=== PATIENT | male | born 1945 | race Hispanic/Latino ===

== ENCOUNTER 2019-01-01 20:02 | Inpatient (IN) | payer OTHER ==
[~2019-01-01] VITALS: Ht 175.3 cm; Wt 95.2 kg
[2019-01-01 20:31] LABS: BASOPHILS % (AUTO) 0.8 % (0.0-5.0); EOSINOPHILS % (AUTO) 0.4 % (0.0-8.0); HEMATOCRIT 42.6 % (42-54); LYMPHOCYTES % (AUTO) 10.2 % (21.0-51.0); MEAN CORPUSCULAR HGB CONC 34.7 g/dL (32.0-36.0); MEAN CORPUSCULAR VOLUME 92.4 fL (79-99); MONOCYTES % (AUTO) 7.9 % (3.0-13.0); NEUTROPHILS % (AUTO) 80.7 % (40.0-77.0); PLATELET COUNT (AUTO) 146 K/uL (130-400); RED BLOOD CELL COUNT(AUTO) 4.61 MIL/uL (4.50-6.20); RED CELL DISTRIBUTION WIDTH 13.9 % (11.0-15.5); WHITE BLOOD COUNT (AUTO) 10.8 K/uL (4.8-10.8)
[2019-01-01 20:44] LABS: CREATININE 4.1 mg/dL (0.5-1.5)
[2019-01-01 20:50] LABS: ALBUMIN 4.1 g/dL (3.5-5.0); BILIRUBIN,TOTAL 1.3 mg/dL (0.2-1.0); TOTAL PROTEIN, SERUM 7.1 g/dL (6.0-8.3)
[2019-01-01 21:14] LABS: APPEARANCE,URINE Clear (CLEAR); BILIRUBIN,URINE Negative (NEGATIVE); COLOR,URINE Yellow (YELLOW); GLUCOSE, URINE (UA) Negative (NEGATIVE); KETONES,URINE Negative (NEGATIVE); LEUKOCYTE ESTERASE ,URINE Trace (NEGATIVE); NITRATE,URINE Negative (NEGATIVE); OCCULT BLOOD,URINE Small (NEGATIVE); PROTEIN,URINE POS 2+ mg/dL (NEGATIVE)
[2019-01-01] MEDS ORDERED: MORPHINE SULFATE 4 MG/1ML SYG ONE (21:16)
[2019-01-01] MEDS ORDERED: ONDANSETRON HCL 4 MG/2 ML VIAL ONE (21:18)
[2019-01-01 21:24] LABS: BACTERIA,URINE Few /HPF (None Seen); SQUAMOUS EPITHELIAL CELL,UR Few /HPF (0-2); TRANSITIONAL EPI CELLS,URINE Few /HPF (None Seen)
[2019-01-01 21:25] LABS: MUCUS,URINE Rare LPF (None Seen)
[2019-01-02 01:15] VITALS: BP 157/88
[2019-01-02] MEDS ORDERED: AMLO5TAB9 PO (02:10)
[2019-01-02] MEDS ORDERED: LOSA100T58 PO (02:10)
[2019-01-02] MEDS ORDERED: METO100T14 PO (02:10)
[2019-01-02 03:07] LABS: CREATINE KINASE, TOTAL 57 U/L (21-232); MYOGLOBIN 198 ng/mL (10-92); TROPONIN I < 0.04 ng/mL (0.00-0.06)
[2019-01-02 03:28] VITALS: BP 151/75
[2019-01-02] MEDS: SODIUM CHLORIDE 0.9% 1000ML 1,000 ML IV SCH ×3 (05:42→22:32)
[2019-01-02 08:00] VITALS: BP 133/67
[2019-01-02 08:40] LABS: CREATINE KINASE, TOTAL 45 U/L (21-232); MYOGLOBIN 213 ng/mL (10-92); TROPONIN I < 0.04 ng/mL (0.00-0.06)
[2019-01-02] MEDS ORDERED: LOSARTAN 100 MG TABLET PO SCH (09:00)
[2019-01-02] MEDS: AMLODIPINE BESYLATE 5 MG TAB PO SCH (09:58)
[2019-01-02] MEDS: METOPROLOL TARTRATE 50 MG TAB PO SCH ×2 (09:58→21:01)
--- NOTE | 2019-01-02 10:30 | NUR ---
ROUND DR. MIKAYLA FERRARI VISITED WITH PATIENT. POC DISCUSSED. NEW ORDERS RECEIVED AND CARRIED OUT.
[2019-01-02 11:12] LABS: CREATININE,URINE RANDOM 129 mg/dL (30-135); SODIUM,URINE RANDOM 98 mmol/l (40-220)
[2019-01-02 12:00] VITALS: BP 146/73
[2019-01-02] MEDS: HYDROCODONE/ACETAMINOPHEN 5/325 MG TAB PO PRN (12:04)
[2019-01-02 13:05] LABS: ALBUMIN 3.2 g/dL (3.5-5.0); BILIRUBIN,TOTAL 1.2 mg/dL (0.2-1.0); CREATININE 5.7 mg/dL (0.5-1.5); POTASSIUM 5.6 mmol/L (3.5-5.1); TOTAL PROTEIN, SERUM 6.5 g/dL (6.0-8.3)
[2019-01-02 15:03] LABS: CREATINE KINASE, TOTAL 38 U/L (21-232); MYOGLOBIN 184 ng/mL (10-92); TROPONIN I < 0.04 ng/mL (0.00-0.06)
[2019-01-02 16:00] VITALS: BP 113/58
[2019-01-02 19:49] VITALS: BP 122/61
[2019-01-03] VITALS (7 sets, daily range): BP systolic 125–152; BP diastolic 60–78
[2019-01-03 05:33] LABS: HEMATOCRIT 35.5 % (42-54); MEAN CORPUSCULAR HEMOGLOBIN 32.9 pg (27.0-33.0); MEAN CORPUSCULAR HGB CONC 34.9 g/dL (32.0-36.0); MEAN CORPUSCULAR VOLUME 94.1 fL (79-99); PLATELET COUNT (AUTO) 108 K/uL (130-400); RED BLOOD CELL COUNT(AUTO) 3.77 MIL/uL (4.50-6.20); RED CELL DISTRIBUTION WIDTH 14.4 % (11.0-15.5); WHITE BLOOD COUNT (AUTO) 12.9 K/uL (4.8-10.8)
[2019-01-03 05:41] LABS: BAND NEUTROPHILS % (MANUAL) 4 % (0-2); LYMPHOCYTES % (MANUAL) 15 % (22-44); MONOCYTES % (MANUAL) 6 % (2-9); SEGMENTED NEUTROPHILS % 75 % (40-70)
[2019-01-03 05:42] LABS: MAN.DIFF COMMENT-IMPRESSION MANUAL DIFFERENTIAL; PLATELET MORPHOLOGY COMMENT SLIGHTLY DECREASED
[2019-01-03 05:52] LABS: ALBUMIN 2.6 g/dL (3.5-5.0); POTASSIUM 5.6 mmol/L (3.5-5.1); TOTAL PROTEIN, SERUM 6.1 g/dL (6.0-8.3)
[2019-01-03] MEDS: SODIUM CHLORIDE 0.9% 1000ML 1,000 ML IV SCH ×3 (05:53→22:33)
[2019-01-03] MEDS: AMLODIPINE BESYLATE 5 MG TAB PO SCH (08:23)
[2019-01-03] MEDS: METOPROLOL TARTRATE 50 MG TAB PO SCH ×2 (08:23→22:07)
[2019-01-03] MEDS: SODIUM POLYSTYRENE SULFONATE 15 GM/60 ML ML PO SCH ×2 (12:30→22:08)
--- NOTE | 2019-01-03 17:10 | NUR ---
DC Plan Discussed dcp with patient and at bedside. Independently performs ADLs with cane/walker. Denies HH or provider services. States has a walker and cane. Denies falls. States feels safe returning home upon discharge. DCP to home w/ . CD Addendum: 01/03/19 at 1711 by ANA LILIA WARD CM Amended: Links added.
[2019-01-03 17:50] LABS: PROTEIN,URINE RANDOM 321.3 mg/dL (0-11.9)
[2019-01-04 04:00] VITALS: BP 153/77
[2019-01-04] MEDS: HYDROCODONE/ACETAMINOPHEN 5/325 MG TAB PO PRN ×2 (04:18→04:22)
[2019-01-04] MEDS: SODIUM CHLORIDE 0.9% 1000ML 1,000 ML IV SCH (05:24)
[2019-01-04 05:57] LABS: ALBUMIN 2.6 g/dL (3.5-5.0); BILIRUBIN,TOTAL 1.3 mg/dL (0.2-1.0); POTASSIUM 4.4 mmol/L (3.5-5.1); TOTAL PROTEIN, SERUM 6.1 g/dL (6.0-8.3)
[2019-01-04 06:04] LABS: CREATININE 8.1 mg/dL (0.5-1.5)
[2019-01-04 07:30] VITALS: BP 145/65
[2019-01-04] MEDS: AMLODIPINE BESYLATE 5 MG TAB PO SCH (08:46)
[2019-01-04] MEDS: METOPROLOL TARTRATE 50 MG TAB PO SCH ×2 (08:46→21:55)
[2019-01-04] MEDS: SODIUM POLYSTYRENE SULFONATE 15 GM/60 ML ML PO SCH ×3 (09:00→21:00)
[2019-01-04 11:00] VITALS: BP 164/75
[2019-01-04] MEDS ORDERED: FUROSEMIDE 10 MG/ML 4ML VIAL IV SCH (12:15)
[2019-01-04] MEDS ORDERED: LACTULOSE 20 GM/30 ML UDCUP PO PRN (12:15)
[2019-01-04] MEDS ORDERED: FUROSEMIDE 10 MG/ML 2ML VIAL IV SCH (12:15)
[2019-01-04] MEDS: IPRATROPIUM/ALBUTEROL SULFATE 3 ML SOLUTION IH SCH ×3 (12:43→23:15)
--- NOTE | 2019-01-04 12:51 | NUR ---
1 TO 2 WEEK Addendum: 01/04/19 at 1252 by JAROD LIU RT Amended: Links added.
[2019-01-04 15:30] VITALS: BP 157/73
[2019-01-04] MEDS: ACETYLCYSTEINE 10% 100MG/ML 4ML VIAL IH SCH ×2 (18:25→23:15)
[2019-01-04 20:01] VITALS: BP 156/85
[2019-01-04] MEDS: GUAIFENESIN-DM 200/20 MG 10 ML PO PRN (21:57)
[2019-01-05] VITALS (11 sets, daily range): BP systolic 142–175; BP diastolic 58–86
[2019-01-05] MEDS ORDERED: FUROSEMIDE 10 MG/ML 2ML VIAL IV SCH (01:15)
[2019-01-05 05:25] LABS: HEMATOCRIT 34.1 % (42-54); MEAN CORPUSCULAR HEMOGLOBIN 32.4 pg (27.0-33.0); MEAN CORPUSCULAR HGB CONC 34.7 g/dL (32.0-36.0); MEAN CORPUSCULAR VOLUME 93.3 fL (79-99); PLATELET COUNT (AUTO) 135 K/uL (130-400); RED BLOOD CELL COUNT(AUTO) 3.65 MIL/uL (4.50-6.20); RED CELL DISTRIBUTION WIDTH 14.3 % (11.0-15.5); WHITE BLOOD COUNT (AUTO) 10.5 K/uL (4.8-10.8)
[2019-01-05 05:31] LABS: INR 1.12 (0.85-1.15); PARTIAL THROMBOPLASTIN TIME 37.3 SEC (26.3-35.5); PROTHROMBIN TIME 11.7 SEC (9.6-11.6)
[2019-01-05 05:34] LABS: PHOSPHORUS 7.3 mg/dL (2.5-4.9)
[2019-01-05 05:43] LABS: CREATININE 9.2 mg/dL (0.5-1.5)
[2019-01-05 06:20] LABS: BAND NEUTROPHILS % (MANUAL) 13 % (0-2); LYMPHOCYTES % (MANUAL) 8 % (22-44); MAN.DIFF COMMENT-IMPRESSION MANUAL DIFFERENTIAL; MONOCYTES % (MANUAL) 6 % (2-9); PLATELET MORPHOLOGY COMMENT ADEQUATE; REACTIVE LYMPHOCYTES 1 % (0-0); SEGMENTED NEUTROPHILS % 72 % (40-70)
[2019-01-05] MEDS: IPRATROPIUM/ALBUTEROL SULFATE 3 ML SOLUTION IH SCH ×4 (06:34→23:30)
[2019-01-05] MEDS: ACETYLCYSTEINE 10% 100MG/ML 4ML VIAL IH SCH ×4 (06:34→23:29)
[2019-01-05] MEDS: SODIUM POLYSTYRENE SULFONATE 15 GM/60 ML ML PO SCH ×3 (09:00→22:29)
[2019-01-05] MEDS ORDERED: LIDOCAINE HCL 2% 20ML ONE (09:48)
[2019-01-05 09:58] LABS: HEMOGLOBIN A1C 6.3 % (4.0-6.0)
[2019-01-05 09:59] LABS: ALBUMIN 2.6 g/dL (3.5-5.0)
[2019-01-05 10:21] LABS: CREATININE 9.4 mg/dL (0.5-1.5)
[2019-01-05 11:47] LABS: % IRON SATURATION 7.7 % (30-44)
[2019-01-05] MEDS ORDERED: HEPARIN SODIUM 5000UNIT/ML 1ML VIAL ONE (17:25)
[2019-01-05] MEDS ORDERED: SODIUM CHLORIDE 0.9% 1000ML 1,000 ML IV PRN (17:45)
[2019-01-05] MEDS ORDERED: ACETAMINOPHEN 325 MG TAB PO PRN (17:45)
[2019-01-05] MEDS ORDERED: 0.9% SODIUM CHLORIDE 1000 ML IV BAG IV PRN (17:45)
[2019-01-05] MEDS: METOPROLOL TARTRATE 50 MG TAB PO SCH ×2 (18:15→22:28)
[2019-01-05] MEDS: AMLODIPINE BESYLATE 5 MG TAB PO SCH (18:15)
[2019-01-06 04:03] VITALS: BP 173/79
[2019-01-06] MEDS: GUAIFENESIN-DM 200/20 MG 10 ML PO PRN ×2 (04:54→21:48)
[2019-01-06 06:00] LABS: HEMATOCRIT 35.5 % (42-54); MEAN CORPUSCULAR HEMOGLOBIN 31.6 pg (27.0-33.0); MEAN CORPUSCULAR HGB CONC 34.2 g/dL (32.0-36.0); MEAN CORPUSCULAR VOLUME 92.3 fL (79-99); PLATELET COUNT (AUTO) 176 K/uL (130-400); RED BLOOD CELL COUNT(AUTO) 3.85 MIL/uL (4.50-6.20); RED CELL DISTRIBUTION WIDTH 14.5 % (11.0-15.5); WHITE BLOOD COUNT (AUTO) 8.4 K/uL (4.8-10.8)
[2019-01-06 06:08] LABS: POTASSIUM 3.5 mmol/L (3.5-5.1)
[2019-01-06 06:16] LABS: CREATININE 7.9 mg/dL (0.5-1.5)
[2019-01-06 06:18] LABS: BAND NEUTROPHILS % (MANUAL) 12 % (0-2); BASOPHILS % (MANUAL) 1 % (0-2); LYMPHOCYTES % (MANUAL) 7 % (22-44); MONOCYTES % (MANUAL) 7 % (2-9); SEGMENTED NEUTROPHILS % 73 % (40-70)
[2019-01-06 06:20] LABS: MAN.DIFF COMMENT-IMPRESSION MANUAL DIFFERENTIAL; PLATELET MORPHOLOGY COMMENT ADEQUATE
[2019-01-06] MEDS: IPRATROPIUM/ALBUTEROL SULFATE 3 ML SOLUTION IH SCH ×4 (06:59→23:32)
[2019-01-06] MEDS: ACETYLCYSTEINE 10% 100MG/ML 4ML VIAL IH SCH ×4 (06:59→23:32)
[2019-01-06 08:00] VITALS: BP 164/81
[2019-01-06] MEDS: METOPROLOL TARTRATE 50 MG TAB PO SCH ×2 (09:00→21:47)
[2019-01-06] MEDS: SODIUM POLYSTYRENE SULFONATE 15 GM/60 ML ML PO SCH ×2 (09:00→21:00)
[2019-01-06] MEDS: AMLODIPINE BESYLATE 5 MG TAB PO SCH (09:00)
[2019-01-06] MEDS ORDERED: LACTULOSE 20 GM/30 ML UDCUP PO PRN (10:30)
[2019-01-06 11:14] LABS: HEPATITIS Bs ANTIGEN SCREEN P Negative (Negative)
[2019-01-06 11:50] VITALS: BP 156/69
[2019-01-06 16:00] VITALS: BP 158/66
[2019-01-06] MEDS: HEPARIN SODIUM 5000UNIT/ML 1ML VIAL IJ PRN (16:58)
[2019-01-06 18:57] VITALS: BP 162/79
[2019-01-06 23:10] VITALS: BP 155/74
--- NOTE | 2019-01-07 02:16 | NUR ---
Pt Update Tele called about this time to notify this chart writer about new onset of A-fib, A-flutter for pt, VS taken and as follows: temp: 98.6, B/P 144/87, HR 154, RR 20, Answering service contacted, Elsi Roth called back to give orders, Orders been carried out.
[2019-01-07] MEDS ORDERED: DILTIAZEM HCL 60 MG TABLET PO PRN (02:30)
[2019-01-07] MEDS ORDERED: DILTIAZEM HCL 5 MG/ML 10 ML VIAL IV SCH (02:30)
[2019-01-07] MEDS ORDERED: DILTIAZEM HCL 5 MG/ML 10 ML VIAL IV ONE (02:52)
[2019-01-07 02:55] VITALS: BP 153/85
--- NOTE | 2019-01-07 03:08 | NUR ---
Pt Update Order to transfer pt to [facility] for more acute care.
--- NOTE | 2019-01-07 03:36 | NUR ---
Pt Update Pt transferred to [facility], report given to MILTON Medley. Care endorsed.
--- NOTE | 2019-01-07 03:45 | NUR ---
NN PATIENT REC'D FROM RM 338. 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 PATIENT DENIES ANY PAIN, STRESS OR DISCOMFORT. CALL LIGHT IN REACH, BED AT LOWEST LEVEL.
[2019-01-07] MEDS ORDERED: METOPROLOL TARTRATE 1 MG/ML 5ML VIAL IV ONE (03:56)
--- NOTE | 2019-01-07 04:00 | NUR ---
NN BP 142/94 HR 159. METOPROLOL 5MG GIVEN IVP. WILL CONTINUE TO ASSESS.
[2019-01-07] MEDS ORDERED: DILTIAZEM HCL 60 MG TABLET ONE (04:24)
--- NOTE | 2019-01-07 04:40 | NUR ---
NN BP 154/82 HR 148. CARDIZEM 30MG PO GIVEN AT THIS TIME.
[2019-01-07] MEDS ORDERED: DILTIAZEM HCL 60 MG TABLET PO SCH (06:00)
[2019-01-07] MEDS: ACETYLCYSTEINE 10% 100MG/ML 4ML VIAL IH SCH (06:00)
[2019-01-07 06:22] LABS: HEMATOCRIT 33.9 % (42-54); MEAN CORPUSCULAR HEMOGLOBIN 31.8 pg (27.0-33.0); MEAN CORPUSCULAR HGB CONC 34.3 g/dL (32.0-36.0); MEAN CORPUSCULAR VOLUME 92.7 fL (79-99); NUCLEATED RED BLOOD CELLS 0.1 % (0.0-0.19); PLATELET COUNT (AUTO) 156 K/uL (130-400); RED BLOOD CELL COUNT(AUTO) 3.66 MIL/uL (4.50-6.20); RED CELL DISTRIBUTION WIDTH 14.4 % (11.0-15.5); WHITE BLOOD COUNT (AUTO) 7.8 K/uL (4.8-10.8)
[2019-01-07 06:32] LABS: ALBUMIN 2.4 g/dL (3.5-5.0); BILIRUBIN,TOTAL 1.3 mg/dL (0.2-1.0); POTASSIUM 3.4 mmol/L (3.5-5.1); TOTAL PROTEIN, SERUM 6.6 g/dL (6.0-8.3)
[2019-01-07 06:39] LABS: INR 1.15 (0.85-1.15)
[2019-01-07 07:17] VITALS: BP 143/99
[2019-01-07] MEDS: FOLIC ACID/VITAMIN B COMP W-C 1 MG CAPSULE PO SCH (09:24)
[2019-01-07] MEDS: AMLODIPINE BESYLATE 5 MG TAB PO SCH (09:24)
[2019-01-07] MEDS: METOPROLOL TARTRATE 50 MG TAB PO SCH ×2 (09:24→22:16)
[2019-01-07] MEDS ORDERED: AMIODARONE HCL 150 MG in DEXTROSE 5%-WATER 100 ML IV SCH (09:30)
[2019-01-07] MEDS ORDERED: AMIODARONE HCL 900 MG in DEXTROSE 5%-WATER 500 ML IV SCH (09:30)
--- NOTE | 2019-01-07 09:40 | NUR ---
NICHOLAS NOTE- OUT PT HD? REVEWED PT CHART. FIRST HD ON 01/06. NO ORDER FOR 'NEW HD LABS' BUT PT DOES HAVE MORE OF THE REQUISITE LABS ON PREVIOUS DAYS. SPOKE TO MILTON, STATES DR. VALDIVIA THINKS THIS WILL BE ACUTE HD ONLY . WILL FOLLOW Addendum: 01/08/19 at 0853 by NESTOR CAZARES RN CM Amended: Links added.
[2019-01-07 11:38] VITALS: BP 141/94
[2019-01-07] MEDS ORDERED: IPRATROPIUM 0.5 MG/2.5 ML INH IH PRN (12:00)
[2019-01-07 15:24] LABS: INR 1.13 (0.85-1.15); PARTIAL THROMBOPLASTIN TIME 34.8 SEC (26.3-35.5); PROTHROMBIN TIME 11.8 SEC (9.6-11.6)
[2019-01-07 16:11] VITALS: BP 149/91
--- NOTE | 2019-01-07 18:34 | NUR ---
Nutrition Intervention: Nutrition screen based on LOS x 5 days. Pt. admitted with Dx of Acute Renal Failure. Pt. S/P Dialysis Catheter placement / HD tx initiated(01/05/19). Pt. on Renal Dialysis diet with 1.5l Fluid Rest. As per family member, pt. with poor p.o. intake due to loss of taste. Spoke with pt. regarding nutritional supplementation and pt. agreed to try. Labs reviewed(Alb 2.4, BUN 55, Creat 7.0, GFR 8). LBM: 01/06/19, as per pt. SR-22, loose. BMI: 34.8, Obesity Grade 1. Pt. and family members educated on Renal Dialysis diet and provided with education material. Pt. and family verbalized understanding. Recommendations: 1) Continue current diet. 2) Rec. Nepro supp. QD with Lunch meal. 3) Renal Dialysis diet education given to pt. and family. 4) Continue to monitor pt's nutritional status. 5) Consult RD as nutrition concerns arise. Addendum: 01/07/19 at [address] Amended: Links added.
[2019-01-07 19:53] VITALS: BP 154/98
--- NOTE | 2019-01-07 20:05 | NUR ---
PATIENT IN DIALYSIS. NO DISTRESS NOTED. A-FLUTTER HR 140'S TO 150'S. AMIODARONE DRIP INFUSING AT 16.6ML/HR. WILL CONTINUE TO MONITOR.
--- NOTE | 2019-01-07 20:15 | NUR ---
DR. MANCILLA MAKING ROUNDS. INFORMED OF HR. NO NEW ORDERS.
--- NOTE | 2019-01-07 21:50 | NUR ---
DIALYSIS COMPLETED. NO FLUID REMOVED.
--- NOTE | 2019-01-07 22:15 | NUR ---
SCHEDULED METOPROLOL 100MG PO GIVEN.
[2019-01-07 23:58] VITALS: BP 164/90
--- NOTE | 2019-01-08 00:20 | NUR ---
A-FLUTTER HR 120'S TO 130'S.
[2019-01-08] MEDS: METOPROLOL TARTRATE 1 MG/ML 5ML VIAL IV PRN ×2 (03:25→16:04)
--- NOTE | 2019-01-08 03:25 | NUR ---
A-FLUTTER HR 130'S TO 140'S. BP 165/81. LOPRESSOR 5MG IV GIVEN.
[2019-01-08 03:27] VITALS: BP 165/87
[2019-01-08 04:04] LABS: HEMATOCRIT 31.6 % (42-54); MEAN CORPUSCULAR HEMOGLOBIN 31.8 pg (27.0-33.0); MEAN CORPUSCULAR HGB CONC 34.7 g/dL (32.0-36.0); MEAN CORPUSCULAR VOLUME 91.7 fL (79-99); PLATELET COUNT (AUTO) 201 K/uL (130-400); RED BLOOD CELL COUNT(AUTO) 3.44 MIL/uL (4.50-6.20); RED CELL DISTRIBUTION WIDTH 14.2 % (11.0-15.5); WHITE BLOOD COUNT (AUTO) 7.4 K/uL (4.8-10.8)
--- NOTE | 2019-01-08 05:25 | NUR ---
PATIENT CONTINUES A-FLUTTER HR 140'S TO 150'S. AMIODARONE DRIP INFUSING. PAGED DR. MURO. REPORTED CONTINUED ELEVATED HR. NO ORDERS.
[2019-01-08 05:57] LABS: BAND NEUTROPHILS % (MANUAL) 8 % (0-2); EOSINOPHILS % (MANUAL) 2 % (1-6); LYMPHOCYTES % (MANUAL) 11 % (22-44); MAN.DIFF COMMENT-IMPRESSION MANUAL DIFFERENTIAL; MONOCYTES % (MANUAL) 6 % (2-9); PLATELET MORPHOLOGY COMMENT ADEQUATE; REACTIVE LYMPHOCYTES 2 % (0-0); SEGMENTED NEUTROPHILS % 71 % (40-70)
[2019-01-08 07:30] VITALS: BP 137/95
[2019-01-08] MEDS: FOLIC ACID/VITAMIN B COMP W-C 1 MG CAPSULE PO SCH (09:03)
[2019-01-08] MEDS: METOPROLOL TARTRATE 50 MG TAB PO SCH ×2 (09:04→21:33)
[2019-01-08] MEDS: AMLODIPINE BESYLATE 5 MG TAB PO SCH (09:04)
[2019-01-08 11:00] VITALS: BP 165/101
[2019-01-08] MEDS ORDERED: DILTIAZEM HCL 60 MG TABLET PO SCH (13:45)
[2019-01-08] MEDS ORDERED: AMIODARONE HCL 200 MG TABLET PO ONE (14:02)
[2019-01-08 15:17] VITALS: BP 148/111
[2019-01-08] MEDS: NITROGLYCERIN 0.4 MG SL TAB SL PRN (15:28)
[2019-01-08] MEDS: HYDROCODONE/ACETAMINOPHEN 5/325 MG TAB PO PRN (15:28)
--- NOTE | 2019-01-08 17:26 | NUR ---
INFORMED BY MONITOR ROOM THAT PATIENT HAS CONVERTED TO SINUS BRADYCARDIA (HR 60).
[2019-01-08 20:02] VITALS: BP 126/68
[2019-01-08] MEDS: AMIODARONE HCL 200 MG TABLET PO SCH (21:33)
[2019-01-09 00:52] VITALS: BP 155/82
[2019-01-09] MEDS: NITROGLYCERIN 0.4 MG SL TAB SL PRN (03:15)
[2019-01-09 04:00] VITALS: BP 158/66
[2019-01-09 04:19] LABS: BASOPHILS % (AUTO) 0.3 % (0.0-5.0); EOSINOPHILS % (AUTO) 2.9 % (0.0-8.0); HEMATOCRIT 31.3 % (42-54); LYMPHOCYTES % (AUTO) 12.1 % (21.0-51.0); MEAN CORPUSCULAR HGB CONC 34.4 g/dL (32.0-36.0); MONOCYTES % (AUTO) 9.3 % (3.0-13.0); NEUTROPHILS % (AUTO) 75.4 % (40.0-77.0); PLATELET COUNT (AUTO) 192 K/uL (130-400); RED BLOOD CELL COUNT(AUTO) 3.37 MIL/uL (4.50-6.20); RED CELL DISTRIBUTION WIDTH 14.3 % (11.0-15.5); WHITE BLOOD COUNT (AUTO) 7.4 K/uL (4.8-10.8)
[2019-01-09 04:28] LABS: CREATININE 5.8 mg/dL (0.5-1.5); PHOSPHORUS 5.8 mg/dL (2.5-4.9); POTASSIUM 3.1 mmol/L (3.5-5.1)
[2019-01-09 04:32] LABS: INR 1.07 (0.85-1.15); PARTIAL THROMBOPLASTIN TIME 32.2 SEC (26.3-35.5); PROTHROMBIN TIME 11.2 SEC (9.6-11.6)
--- NOTE | 2019-01-09 05:15 | NUR ---
PATIENT C/O CHEST PRESSURE. NITRO SL ADMINISTERED. WILL ADMINISTER AGAIN IN 5 MIN IF SYMPTOMS DO NOT SUBSIDE Addendum: 01/09/19 at 9575 by LAKESHA MCDANIELS RN RN NITRO GIVEN AT 0768
--- NOTE | 2019-01-09 05:39 | NUR ---
0320 PATIENT CONTINUED TO HAVE CHEST PAIN. 2ND NITRO ADMINISTERED. REASSESSED PATIENT AT 0325. PATIENT STATED HE NO LONGER HAD CHEST PAIN.
--- NOTE | 2019-01-09 07:00 | NUR ---
BENCHMARK PAGED. PATIENT VERY ANXIOUS WITH NAUSEA AND SOB. VERBAL ORDERS GIVEN. GIVE 4MG IV AND START HD.
[2019-01-09] MEDS ORDERED: ONDANSETRON HCL 4 MG/2 ML VIAL ONE (07:07)
[2019-01-09 07:30] VITALS: BP 179/75
[2019-01-09] MEDS ORDERED: ONDANSETRON HCL 4 MG/2 ML VIAL IVP PRN (07:45)
[2019-01-09] MEDS: HEPARIN SODIUM 5000UNIT/ML 1ML VIAL IJ PRN (09:22)
[2019-01-09] MEDS: ACETAMINOPHEN 325 MG TAB PO PRN (11:11)
[2019-01-09] MEDS: APIXABAN 2.5 MG TABLET PO SCH ×2 (11:18→20:52)
[2019-01-09] MEDS: FOLIC ACID/VITAMIN B COMP W-C 1 MG CAPSULE PO SCH (11:18)
[2019-01-09] MEDS: METOPROLOL TARTRATE 50 MG TAB PO SCH ×2 (11:19→20:52)
[2019-01-09] MEDS: AMIODARONE HCL 200 MG TABLET PO SCH ×2 (11:19→20:52)
[2019-01-09 11:23] VITALS: BP 162/68
[2019-01-09 15:23] VITALS: BP 131/66
--- NOTE | 2019-01-09 15:30 | NUR ---
HD CLARIFICATION SPOKE TO DR. VALDIVIA WHO STATES HE IS STILL NOT SURE THE PATIENT [id number] NEED TRANSFER DRIVER HD- 'NEEDS A RENAL BIOPSY FIRST- BUT GO AHEAD AND SEND THE INTO TO THE HD CLNIC IN [place]" ADVISED HIM THE PKT WOULD BE SENT Friday
[2019-01-09] MEDS: GUAIFENESIN-DM 200/20 MG 10 ML PO PRN (16:00)
[2019-01-09 19:41] VITALS: BP 146/72
[2019-01-10 00:42] VITALS: BP 153/70
[2019-01-10 03:28] LABS: HEMATOCRIT 31.6 % (42-54); MEAN CORPUSCULAR HEMOGLOBIN 31.3 pg (27.0-33.0); MEAN CORPUSCULAR HGB CONC 33.6 g/dL (32.0-36.0); MEAN CORPUSCULAR VOLUME 93.1 fL (79-99); PLATELET COUNT (AUTO) 170 K/uL (130-400); RED BLOOD CELL COUNT(AUTO) 3.39 MIL/uL (4.50-6.20); RED CELL DISTRIBUTION WIDTH 14.6 % (11.0-15.5); WHITE BLOOD COUNT (AUTO) 12.2 K/uL (4.8-10.8)
[2019-01-10 03:38] LABS: CREATININE 5.1 mg/dL (0.5-1.5); PHOSPHORUS 4.9 mg/dL (2.5-4.9); POTASSIUM 3.6 mmol/L (3.5-5.1)
[2019-01-10 04:00] VITALS: BP 140/85
--- NOTE | 2019-01-10 04:32 | NUR ---
PATIENT RESTING IN BED. NO C/O PAIN OR SOB.PATIENT IS USING 2L OF 02 VIA NC. 02 SATS WNL. NO EPISODES OF NAUSEA OR VOMITING. HD CATHETER DRESSING INTACT. WILL CONTINUE TO MONITOR.
[2019-01-10 07:36] VITALS: BP 159/69
[2019-01-10] MEDS: METOPROLOL TARTRATE 50 MG TAB PO SCH ×2 (09:34→21:17)
[2019-01-10] MEDS: AMIODARONE HCL 200 MG TABLET PO SCH ×2 (09:34→21:17)
[2019-01-10] MEDS: FOLIC ACID/VITAMIN B COMP W-C 1 MG CAPSULE PO SCH (09:35)
[2019-01-10] MEDS: APIXABAN 2.5 MG TABLET PO SCH (09:35)
[2019-01-10 11:11] VITALS: BP 177/72
[2019-01-10 15:18] VITALS: BP 169/86
--- NOTE | 2019-01-10 18:30 | NUR ---
HD PKT FAXED TO [facility] IN [place]
[2019-01-10 19:29] VITALS: BP 178/77
[2019-01-11] VITALS (8 sets, daily range): BP systolic 156–186; BP diastolic 61–89
[2019-01-11 03:49] LABS: HEMATOCRIT 30.7 % (42-54); MEAN CORPUSCULAR HEMOGLOBIN 32.1 pg (27.0-33.0); MEAN CORPUSCULAR HGB CONC 34.6 g/dL (32.0-36.0); MEAN CORPUSCULAR VOLUME 92.7 fL (79-99); PLATELET COUNT (AUTO) 187 K/uL (130-400); RED BLOOD CELL COUNT(AUTO) 3.31 MIL/uL (4.50-6.20); RED CELL DISTRIBUTION WIDTH 14.3 % (11.0-15.5); WHITE BLOOD COUNT (AUTO) 10.8 K/uL (4.8-10.8)
[2019-01-11 03:55] LABS: CREATININE 4.9 mg/dL (0.5-1.5); POTASSIUM 3.2 mmol/L (3.5-5.1)
[2019-01-11] MEDS: METOPROLOL TARTRATE 50 MG TAB PO SCH ×2 (09:00→21:00)
[2019-01-11] MEDS: FOLIC ACID/VITAMIN B COMP W-C 1 MG CAPSULE PO SCH (09:00)
[2019-01-11] MEDS: AMIODARONE HCL 200 MG TABLET PO SCH ×2 (09:00→10:00)
--- NOTE | 2019-01-11 09:00 | NUR ---
NOTIFIED DR. Main MANCILLA AT NURSE'S STATION RE:HR-50'S, VERBALIZED UNDERSTANDING AND STATES OK TO ADMINISTER LOPRESSOR 100MG ORDERED.
--- NOTE | 2019-01-11 09:10 | NUR ---
DR. VALDIVIA IN ROOM SPEAKING WITH PT. AND SPOUSE AT BEDSIDE RE:KIDNEY BIOPSY PLANNED FOR TOMORROW. QUESTIONS ANSWERED BY DR. VALDIVIA. Edi SCOTT RN REGIONAL LIAISON AT BEDSIDE.
--- NOTE | 2019-01-11 11:00 | NUR ---
MAHNAZ GOMES, IN ROOM SPEAKING WITH PT. AND PT.'S SPOUSE AT BEDSIDE RE:PLAN OF CARE. QUESTIONS ANSWERED BY MANAGER TRANSPLANT.
--- NOTE | 2019-01-11 11:15 | NUR ---
EDEL, HD NURSE MADE AWARE RE:HD TO BE DONE TODAY; VERBALIZED UNDERSTANDING.
--- NOTE | 2019-01-11 13:30 | NUR ---
REPORT Called report to nurse Kaylee. Patient being transported to room 301. Will have hemodialysis once he arrives to room 301.
[2019-01-11] MEDS ORDERED: SODIUM BICARB 50MEQ 50ML VIAL ONE (16:20)
[2019-01-11] MEDS ORDERED: LIDOCAINE HCL 1% 20 ML VIAL ONE (16:21)
--- NOTE | 2019-01-11 16:57 | NUR ---
PT . DIALYSIS TREATMENT COMPLETED . WITH A REMOVAL OF 2.5 LITER .
[2019-01-11] MEDS ORDERED: HYDRALAZINE HCL 20 MG/ML VIAL IV SCH (21:45)
[2019-01-11] MEDS ORDERED: HYDRALAZINE HCL 20 MG/ML VIAL ONE (21:48)
[2019-01-11] MEDS: ACETAMINOPHEN 325 MG TAB PO PRN (23:04)
[2019-01-12] VITALS (13 sets, daily range): BP systolic 144–179; BP diastolic 59–76
[2019-01-12 04:45] LABS: MEAN CORPUSCULAR HEMOGLOBIN 31.6 pg (27.0-33.0); MEAN CORPUSCULAR HGB CONC 34.3 g/dL (32.0-36.0); MEAN CORPUSCULAR VOLUME 92.1 fL (79-99); PLATELET COUNT (AUTO) 208 K/uL (130-400); RED BLOOD CELL COUNT(AUTO) 3.48 MIL/uL (4.50-6.20); RED CELL DISTRIBUTION WIDTH 13.9 % (11.0-15.5); WHITE BLOOD COUNT (AUTO) 10.3 K/uL (4.8-10.8)
[2019-01-12 04:57] LABS: CREATININE 3.7 mg/dL (0.5-1.5); POTASSIUM 3.5 mmol/L (3.5-5.1)
[2019-01-12 04:58] LABS: INR 1.05 (0.85-1.15); PARTIAL THROMBOPLASTIN TIME 28.7 SEC (26.3-35.5)
[2019-01-12] MEDS: METOPROLOL TARTRATE 50 MG TAB PO SCH ×2 (08:10→21:39)
[2019-01-12] MEDS: AMIODARONE HCL 200 MG TABLET PO SCH ×2 (08:10→21:40)
[2019-01-12] MEDS: FOLIC ACID/VITAMIN B COMP W-C 1 MG CAPSULE PO SCH (08:10)
[2019-01-12] MEDS: HYDRALAZINE HCL 25 MG TABLET PO SCH ×3 (08:11→21:39)
--- NOTE | 2019-01-12 09:40 | NUR ---
TO I. R. VIA BED , WITH STAFF AT THE BEDSIDE, FOR THE BX. OF THE KIDNEY TO BE DONE . PER DR. ELLIOTT . NPO . EXCEPT FOR B/P MEDICATIONS GIVEN
--- NOTE | 2019-01-12 10:50 | NUR ---
U/S GD LEFT KIDNEY BX PROCEDURE PERFORMED BY DR GALVAN . PUNCTURE SITE LEFT POSTERIOR BACK AND PATIENT TOLERATED PROCEDURE WELL. SPECIMEN X 3 COLLECTED AND SENT TO LAB. END OF PROCEDURE AT 1100. BIOPSY NEEDLE REMOVED AND DRESSING APPLIED. NO BLEEDING NOTED. . REPORT GIVEN TO MILTON RANKIN AND PATIENT TRANSPORTED TO 301 VIA BED @ 1140. PT STABLE, WITH NO C/O PAIN.
--- NOTE | 2019-01-12 11:50 | NUR ---
PT BACK FROM I.R. . PT AAO X [address] ELLIOTT ORDERS FOR POSTOP CARE. POSTOP V/S S TARTED . PT TO REMAIN BEDREST, ASSESS HIS LT SIDE OF HIS BACK TO CHECK HIS DRSG . . DRY AND CLEAN. . REVIEW ORDERS TO USE URINAL AND THAT URINE OUTPUT WILL BE BLOODY. DR. ELLIOTT IS AWARE OF THE OUTPUT RESULTS . WILL RACK ALL URINE SAMPLES . ORDERS . CALL LIGHT IN REACH. AT THE BEDSIDE . FOR SUPPORT CARE .
[2019-01-12] MEDS: HYDROCODONE/ACETAMINOPHEN 5/325 MG TAB PO PRN (12:12)
[2019-01-12] MEDS ORDERED: MORPHINE SULFATE 2 MG/ML 1ML SYG IVP PRN ×2 (13:15→13:30)
[2019-01-12] MEDS ORDERED: MORPHINE SULFATE 2 MG/ML 1ML SYG ONE (13:18)
--- NOTE | 2019-01-12 14:27 | NUR ---
RD Follow up Patient diet held pending procedure. When medically feasible, rec to resume Renal Dialysis diet. Diet education previously provided. Patient monitored labs : Cl 100, BUN 44, Cr 3.7, GFR 17, Ca 8.4. RD to continue to monitor. Please notify RD as nutritional concerns arise. Thank you. Addendum: 01/12/19 at [address] Amended: Links added.
--- NOTE | 2019-01-12 18:00 | NUR ---
DR. ELLIOTT HERE , AND ASSESS THE URINE . RACKING COLOR . OUTPUT. URINE GETTING NOW TO A PINKISH COLOR . STILL BED REST . DENIES ANY PAIN. FAMILY AT THE BEDSIDE CALL LIGHT IN REACH.
[2019-01-13 03:00] VITALS: BP 178/78
[2019-01-13 05:38] LABS: BASOPHILS % (AUTO) 0.3 % (0.0-5.0); EOSINOPHILS % (AUTO) 1.5 % (0.0-8.0); HEMATOCRIT 31.9 % (42-54); LYMPHOCYTES % (AUTO) 11.5 % (21.0-51.0); MEAN CORPUSCULAR HEMOGLOBIN 31.9 pg (27.0-33.0); MEAN CORPUSCULAR HGB CONC 34.5 g/dL (32.0-36.0); MEAN CORPUSCULAR VOLUME 92.3 fL (79-99); NEUTROPHILS % (AUTO) 79.7 % (40.0-77.0); PLATELET COUNT (AUTO) 195 K/uL (130-400); RED BLOOD CELL COUNT(AUTO) 3.45 MIL/uL (4.50-6.20); RED CELL DISTRIBUTION WIDTH 14.1 % (11.0-15.5); WHITE BLOOD COUNT (AUTO) 9.2 K/uL (4.8-10.8)
[2019-01-13 05:49] LABS: INR 1.08 (0.85-1.15); PARTIAL THROMBOPLASTIN TIME 29.3 SEC (26.3-35.5); PROTHROMBIN TIME 11.3 SEC (9.6-11.6)
[2019-01-13 05:51] LABS: CREATININE 3.8 mg/dL (0.5-1.5); MAGNESIUM 1.7 mg/dL (1.80-2.40); PHOSPHORUS 4.3 mg/dL (2.5-4.9); POTASSIUM 3.9 mmol/L (3.5-5.1)
[2019-01-13 07:44] VITALS: BP 165/74
[2019-01-13] MEDS ORDERED: ACETAMINOPHEN 325 MG TAB PO PRN (08:15)
[2019-01-13] MEDS ORDERED: HEPARIN SODIUM 5000UNIT/ML 1ML VIAL IJ PRN ×2 (08:15)
[2019-01-13] MEDS ORDERED: NITROGLYCERIN 0.4 MG SL TAB SL PRN (08:15)
[2019-01-13] MEDS ORDERED: MAGNESIUM 2GM PREMIX 50ML 50 ML IV PRN (10:15)
[2019-01-13 12:00] VITALS: BP 155/72
[2019-01-13] MEDS: METOPROLOL TARTRATE 50 MG TAB PO SCH ×2 (12:16→20:28)
[2019-01-13] MEDS: AMIODARONE HCL 200 MG TABLET PO SCH ×2 (12:17→20:28)
[2019-01-13] MEDS: FOLIC ACID/VITAMIN B COMP W-C 1 MG CAPSULE PO SCH (12:17)
[2019-01-13] MEDS: HYDRALAZINE HCL 25 MG TABLET PO SCH ×3 (12:17→20:28)
[2019-01-13] MEDS ORDERED: LORAZEPAM 2 MG/ML 1 ML VIAL IVP SCH (13:30)
--- NOTE | 2019-01-13 13:38 | NUR ---
CM NOTE CHART REVIEWED FOR IDT. PENDING BIOPSY, THEN MORE PERMANENT ACCESS FOR HD; REFERRAL TO INSURANCE BY HD CLINIC WILL NOT HAPPEN UNTIL AFTER PERMANENT PLACMENT MADE
[2019-01-13 16:00] VITALS: BP 159/57
[2019-01-13 20:00] VITALS: BP 161/60
[2019-01-14] VITALS (7 sets, daily range): BP systolic 150–189; BP diastolic 54–86
[2019-01-14 05:43] LABS: BASOPHILS % (AUTO) 0.5 % (0.0-5.0); HEMATOCRIT 33.4 % (42-54); LYMPHOCYTES % (AUTO) 11.6 % (21.0-51.0); MEAN CORPUSCULAR HGB CONC 33.7 g/dL (32.0-36.0); MONOCYTES % (AUTO) 6.8 % (3.0-13.0); NEUTROPHILS % (AUTO) 79.1 % (40.0-77.0); PLATELET COUNT (AUTO) 237 K/uL (130-400); RED BLOOD CELL COUNT(AUTO) 3.63 MIL/uL (4.50-6.20); RED CELL DISTRIBUTION WIDTH 14.1 % (11.0-15.5); WHITE BLOOD COUNT (AUTO) 10.6 K/uL (4.8-10.8)
[2019-01-14 05:50] LABS: INR 1.02 (0.85-1.15); PARTIAL THROMBOPLASTIN TIME 29.1 SEC (26.3-35.5); PROTHROMBIN TIME 10.7 SEC (9.6-11.6)
[2019-01-14 06:02] LABS: ALBUMIN 2.4 g/dL (3.5-5.0); BILIRUBIN,TOTAL 0.4 mg/dL (0.2-1.0); PHOSPHORUS 3.5 mg/dL (2.5-4.9); POTASSIUM 3.1 mmol/L (3.5-5.1)
[2019-01-14] MEDS: FOLIC ACID/VITAMIN B COMP W-C 1 MG CAPSULE PO SCH (08:27)
[2019-01-14] MEDS: HYDRALAZINE HCL 25 MG TABLET PO SCH ×3 (08:30→21:35)
[2019-01-14] MEDS: AMIODARONE HCL 200 MG TABLET PO SCH ×2 (08:31→21:34)
[2019-01-14] MEDS: GUAIFENESIN-DM 200/20 MG 10 ML PO PRN (08:32)
[2019-01-14] MEDS: METOPROLOL TARTRATE 50 MG TAB PO SCH ×2 (11:27→21:36)
[2019-01-15] VITALS: BP 154/62
[2019-01-15 04:00] VITALS: BP 156/65
[2019-01-15 05:44] LABS: BASOPHILS % (AUTO) 0.6 % (0.0-5.0); EOSINOPHILS % (AUTO) 2.4 % (0.0-8.0); HEMATOCRIT 31.7 % (42-54); LYMPHOCYTES % (AUTO) 16.3 % (21.0-51.0); MEAN CORPUSCULAR HEMOGLOBIN 32.1 pg (27.0-33.0); MEAN CORPUSCULAR VOLUME 91.8 fL (79-99); MONOCYTES % (AUTO) 8.1 % (3.0-13.0); NEUTROPHILS % (AUTO) 72.6 % (40.0-77.0); PLATELET COUNT (AUTO) 233 K/uL (130-400); RED BLOOD CELL COUNT(AUTO) 3.45 MIL/uL (4.50-6.20); WHITE BLOOD COUNT (AUTO) 8.7 K/uL (4.8-10.8)
[2019-01-15 05:53] LABS: INR 1.02 (0.85-1.15); PROTHROMBIN TIME 10.7 SEC (9.6-11.6)
[2019-01-15 06:02] LABS: CREATININE 3.2 mg/dL (0.5-1.5); MAGNESIUM 1.8 mg/dL (1.80-2.40); PHOSPHORUS 3.5 mg/dL (2.5-4.9); POTASSIUM 3.1 mmol/L (3.5-5.1)
[2019-01-15 08:00] VITALS: BP 161/74
[2019-01-15] MEDS ORDERED: ENOXAPARIN SODIUM 100 MG/1 ML SQ SCH (09:00)
[2019-01-15 12:00] VITALS: BP 168/64
[2019-01-15] MEDS: HYDRALAZINE HCL 25 MG TABLET PO SCH ×3 (14:00→21:13)
--- NOTE | 2019-01-15 15:11 | NUR ---
CM NOTE- OUTPT HD STILL PENDING DR. VALDIVIA'S NOTE REVIEWED- STATES PATH SHOWS POSS THROMBUS? NO ORDER FOR PERMACATH YET, HD CLNIC WILL NOT SEND TO INSURANCE UNTIL PERMACATH PLACED.
[2019-01-15 16:00] VITALS: BP 161/75
[2019-01-15] MEDS: FOLIC ACID/VITAMIN B COMP W-C 1 MG CAPSULE PO SCH (18:24)
[2019-01-15] MEDS: METOPROLOL TARTRATE 50 MG TAB PO SCH ×2 (18:25→21:13)
[2019-01-15] MEDS: AMIODARONE HCL 200 MG TABLET PO SCH ×2 (18:25→21:13)
[2019-01-15 20:00] VITALS: BP 154/70
--- NOTE | 2019-01-15 20:40 | NUR ---
PM Assessment Received pt with spouse at the bedside, routine assessment done, plan of care discuss, c/o feeling burning to his Juan Ramon catheter site. Dressing clean & dry & per pt stated it has been change 3 times today & site remain burning. Per pt stated it's not just a sensation, can't explain well & that they have inform Dr. Watson when he made rounds that he will order something for it. I made them aware that all Dr. Watson has ordered is Heparin 5000 units Q 12 for circulation. Pt insisted for me to call Dr. Watson I did inform them I won't since he was already aware of the problem, meanwhile pt agreed to try application of cold compress to the Juan Ramon site area. Per pt mention when asked about hemodialysis, stated dialysis is only done in the hospital & once he goes home, he does not need to be on dialysis per Dr. Santiago.
[2019-01-15] MEDS: HEPARIN SODIUM 5000UNIT/ML 1ML VIAL SQ SCH (21:25)
[2019-01-16] VITALS (7 sets, daily range): BP systolic 155–166; BP diastolic 57–77
[2019-01-16 03:46] LABS: ABG BASE EXCESS 6.5 mmol/L (-2.0-3.0); ABG HCO3 30.2 mmol/L (21.0-28.0); ABG OXYGEN SATURATION 94.8 % (95.0-99.0); ABG PCO2 40 mmHg (35-48)
[2019-01-16 06:28] LABS: HEMATOCRIT 33.7 % (42-54); MEAN CORPUSCULAR HEMOGLOBIN 31.4 pg (27.0-33.0); MEAN CORPUSCULAR HGB CONC 34.3 g/dL (32.0-36.0); MEAN CORPUSCULAR VOLUME 91.4 fL (79-99); PLATELET COUNT (AUTO) 283 K/uL (130-400); RED BLOOD CELL COUNT(AUTO) 3.69 MIL/uL (4.50-6.20); RED CELL DISTRIBUTION WIDTH 13.8 % (11.0-15.5); WHITE BLOOD COUNT (AUTO) 8.5 K/uL (4.8-10.8)
[2019-01-16 06:38] LABS: INR 1.01 (0.85-1.15); PARTIAL THROMBOPLASTIN TIME 29.6 SEC (26.3-35.5); PROTHROMBIN TIME 10.6 SEC (9.6-11.6)
[2019-01-16 06:41] LABS: CREATININE 2.6 mg/dL (0.5-1.5); POTASSIUM 3.3 mmol/L (3.5-5.1)
[2019-01-16] MEDS: METOPROLOL TARTRATE 50 MG TAB PO SCH ×2 (09:00→21:37)
[2019-01-16] MEDS: HYDRALAZINE HCL 25 MG TABLET PO SCH ×3 (10:27→21:38)
[2019-01-16] MEDS: FOLIC ACID/VITAMIN B COMP W-C 1 MG CAPSULE PO SCH (10:27)
[2019-01-16] MEDS: AMIODARONE HCL 200 MG TABLET PO SCH ×2 (10:27→21:37)
[2019-01-16] MEDS: HEPARIN SODIUM 5000UNIT/ML 1ML VIAL SQ SCH ×2 (10:33→21:47)
--- NOTE | 2019-01-16 12:44 | NUR ---
Nutrition Follow-up: Pt. continues on HD treatments. Pt. S/P Kidney biopsy(01/12/19). Pt. on Renal dialysis diet with Nepro supp. TID. Pt. reports good p.o. intake of meals and nut. supplement. Labs reviewed(Alb 2.4, BUN 35, Creat 2.6, GFR 26). LBM: 01/14/19. SR-22, elastic. Recommendations: 1) Continue current diet and Nepro supplement. 2) Continue to monitor pt's nutritional status. 3) Consult RD as nutrition concerns arise. Addendum: 01/16/19 at [address] Amended: Links added.
[2019-01-17] VITALS (7 sets, daily range): BP systolic 132–170; BP diastolic 64–83
[2019-01-17 05:49] LABS: CREATININE 2.7 mg/dL (0.5-1.5); POTASSIUM 3.4 mmol/L (3.5-5.1)
[2019-01-17] MEDS: HYDRALAZINE HCL 25 MG TABLET PO SCH ×3 (10:08→19:38)
[2019-01-17] MEDS: FOLIC ACID/VITAMIN B COMP W-C 1 MG CAPSULE PO SCH (10:08)
[2019-01-17] MEDS: METOPROLOL TARTRATE 50 MG TAB PO SCH ×2 (10:08→19:38)
[2019-01-17] MEDS: AMIODARONE HCL 200 MG TABLET PO SCH ×2 (10:09→19:38)
[2019-01-17] MEDS: HEPARIN SODIUM 5000UNIT/ML 1ML VIAL SQ SCH ×2 (10:13→19:36)
[2019-01-18 03:00] VITALS: BP_DIAS 71
[2019-01-18 06:07] LABS: CREATININE 2.6 mg/dL (0.5-1.5); POTASSIUM 3.5 mmol/L (3.5-5.1)
[2019-01-18 07:56] VITALS: BP 158/78
--- NOTE | 2019-01-18 08:00 | NUR ---
AM SHIFT ASSESSMENT.
[2019-01-18] MEDS: METOPROLOL TARTRATE 50 MG TAB PO SCH (09:01)
[2019-01-18] MEDS: FOLIC ACID/VITAMIN B COMP W-C 1 MG CAPSULE PO SCH (09:02)
[2019-01-18] MEDS: AMIODARONE HCL 200 MG TABLET PO SCH (09:02)
[2019-01-18] MEDS: HYDRALAZINE HCL 25 MG TABLET PO SCH (09:04)
[2019-01-18] MEDS: HEPARIN SODIUM 5000UNIT/ML 1ML VIAL SQ SCH (09:10)
[2019-01-18 11:57] VITALS: BP 164/70
--- NOTE | 2019-01-18 15:51 | NUR ---
cm note spoke to pts nurse kevin and states pt has orders for discharge, due to per dr Santiago will not need Hemodialysis. setup. will pull catheter and pt to be dc's dhome call made to kortney at [facility] in [place] and informed of above. verbalizes understanding.
[2019-01-18 16:00] VITALS: BP 177/71
--- NOTE | 2019-01-18 18:50 | NUR ---
DISCHARGED NOW USING TEACH BACK. VERBALIZED UNDERSTANDING OF ALL INST. GIVEN. WILL SEE DR. ASCENCIO IN AM HE STATES HE HAS NO ELIQUIS AVAILABLE AND DOESN'T THINK HE HAS TAKEN IT IN THE PAST.
--- NOTE | 2019-01-19 06:59 | NUR ---
CECI AND SALINE LOCK REMOVED, PRESSURE APPLIED TO CECI SITE, NO BLEEDING NOTED. PREPARED FOR DISCHARGE.
== END 2019-01-18 19:00 | disposition home or self-care (01) | DRG 682 ==
LOC: EDH 20:02 → EDHIP 01-02 00:12 → 3DH 01-02 00:39 → 2DH 01-07 03:31 → 2AH 01-07 18:14 → 3AH 01-11 13:35
PROVIDERS: ADMIT Internal Medicine Critical Care Medicine; ATTEND Internal Medicine Critical Care Medicine
PROC: 5A1D70Z Performance of Urinary Filtration, Intermittent, Less than 6 Hours Per Day (ICD-10-PCS; principal; 2019-01-05)
PROC: 02HV33Z Insertion of Infusion Device into Superior Vena Cava, Percutaneous Approach (ICD-10-PCS; 2019-01-05)
PROC: B543ZZA Ultrasonography of Right Jugular Veins, Guidance (ICD-10-PCS; 2019-01-05)
PROC: 5A1D70Z Performance of Urinary Filtration, Intermittent, Less than 6 Hours Per Day (ICD-10-PCS; 2019-01-06)
PROC: 5A1D70Z Performance of Urinary Filtration, Intermittent, Less than 6 Hours Per Day (ICD-10-PCS; 2019-01-07)
PROC: 5A1D70Z Performance of Urinary Filtration, Intermittent, Less than 6 Hours Per Day (ICD-10-PCS; 2019-01-09)
PROC: 5A1D70Z Performance of Urinary Filtration, Intermittent, Less than 6 Hours Per Day (ICD-10-PCS; 2019-01-11)
PROC: 0TB13ZX Excision of Left Kidney, Percutaneous Approach, Diagnostic (ICD-10-PCS; 2019-01-12)
PROC: 0TB03ZX Excision of Right Kidney, Percutaneous Approach, Diagnostic (ICD-10-PCS; 2019-01-12)
PROC: 5A1D70Z Performance of Urinary Filtration, Intermittent, Less than 6 Hours Per Day (ICD-10-PCS; 2019-01-13)
PROC: 5A1D70Z Performance of Urinary Filtration, Intermittent, Less than 6 Hours Per Day (ICD-10-PCS; 2019-01-15)
DX: N17.1 Acute kidney failure with acute cortical necrosis (principal); I50.23 Acute on chronic systolic (congestive) heart failure; I13.2 Hypertensive heart and chronic kidney disease with heart failure and with stage 5 chronic kidney disease, or end stage renal disease; E87.2 Acidosis; E44.0 Moderate protein-calorie malnutrition; N28.0 Ischemia and infarction of kidney; N18.6 End stage renal disease; E66.01 Morbid (severe) obesity due to excess calories; E86.9 Volume depletion, unspecified; E87.8 Other disorders of electrolyte and fluid balance, not elsewhere classified; G89.4 Chronic pain syndrome; G47.33 Obstructive sleep apnea (adult) (pediatric); D64.9 Anemia, unspecified; F41.9 Anxiety disorder, unspecified; G47.10 Hypersomnia, unspecified; R73.9 Hyperglycemia, unspecified; I48.0 Paroxysmal atrial fibrillation; Z99.2 Dependence on renal dialysis; Z79.01 Long term (current) use of anticoagulants; Z86.718 Personal history of other venous thrombosis and embolism; Z90.49 Acquired absence of other specified parts of digestive tract; Z68.31 Body mass index [BMI] 31.0-31.9, adult
CPT/HCPCS: 36415; 36556; 36600; 50200; 71045; 74176; 76770; 76942; 77001; 80048; 80053; 80061; 81001; 82040; 82550; 82565; 82570; 82728; 82803; 82948; 83036; 83540; 83550; 83690; 83735; 83874; 84100; 84132; 84153; 84156; 84166; 84300; 84484; 84520; 85025; 85027; 85610; 85730; 86038; 86160; 86215; 86235; 86255; 86325; 86334; 86701; 86704; 86706; 87340; 87390; 87520; 90935; 93005; 93306; 94640; 94664; C1752; G0378; J0282; J0360; J1644; J1940; J2060; J2270; J2405; J3475; J3490; J7030; J7060; J7608

== ENCOUNTER → 2019-08-12 | Outpatient (CLI) | payer OTHER ==
[~2019-08-12] MED LIST: AMLO5TAB9 PO; IOHEXOL-350 50ML VIAL IV ONE; LOSA100T58 PO; METO100T14 PO
== END | disposition home or self-care (01) ==
LOC: RAH 13:18
PROVIDERS: ATTEND Internal Medicine
DX: G31.89 Other specified degenerative diseases of nervous system (principal); I12.9 Hypertensive chronic kidney disease with stage 1 through stage 4 chronic kidney disease, or unspecified chronic kidney disease; N18.9 Chronic kidney disease, unspecified; R20.0 Anesthesia of skin
CPT/HCPCS: 70470; Q9967

== ENCOUNTER → 2022-05-23 | Outpatient (CLI) | payer OTHER ==
[~2022-05-23] MED LIST changes: +AMIO200T44 PO; -AMLO5TAB9 PO; +ATOR40TA69 PO; -IOHEXOL-350 50ML VIAL IV ONE; -LOSA100T58 PO; -METO100T14 PO; +METO50 PO; +OMEP20TA2 PO
== END | disposition home or self-care (01) ==
LOC: OIH 10:56
PROVIDERS: ATTEND Student in an Organized Health Care Education/Training Program
DX: I31.3 Pericardial effusion (noninflammatory) (principal)
CPT/HCPCS: 93306